=== PATIENT | female | born 1975 | race Caucasian/White ===

== ENCOUNTER → 2023-11-28 08:35 | Outpatient (REF) | payer OTHER, SELFPAY | LOC: HWRAD 08:35 | PROVIDERS: ATTENDING PHYSICIAN Psychiatry & Neurology Neurology; FAMILY PHYSICIAN Family Medicine | DX: G54.0 Brachial plexus disorders (principal) | CPT/HCPCS: 71046 ==

== ENCOUNTER → 2023-12-04 17:26 | Outpatient (REF) | payer OTHER, SELFPAY | LOC: PAVMRI 17:26 | PROVIDERS: ATTENDING PHYSICIAN Psychiatry & Neurology Neurology; FAMILY PHYSICIAN Family Medicine | DX: G54.0 Brachial plexus disorders (principal) | CPT/HCPCS: 73218 ==

== ENCOUNTER → 2024-04-29 06:27 | Day surgery (SDC) | payer OTHER, SELFPAY | LOC: GI 06:27 | PROVIDERS: ATTENDING PHYSICIAN Internal Medicine Gastroenterology | DX: Z12.11 Encounter for screening for malignant neoplasm of colon (principal); D12.0 Benign neoplasm of cecum; K63.5 Polyp of colon; Q43.8 Other specified congenital malformations of intestine; Z83.719 Family history of colon polyps, unspecified | CPT/HCPCS: 45385; 88305 ==

== ENCOUNTER 2025-02-06 13:34 | Emergency (ER) | payer OTHER, SELFPAY ==
[2025-02-06 13:50] VITALS: BP 125/73
--- NOTE | 2025-02-06 15:14 | ED.GENMED ---
History of Present Illness
General
Chief Complaint: Head Injury
Source: patient
Time Seen by Provider: 02/06/25 14:59
History of Present Illness
History of Present Illness:
Left this patient is a 49-year-old female presents emergency department status post low impact head injury on Monday. She was climbing down from a jungle gym, walking down the steps when she accidentally hit the back of her head against a
beam. She said it hurt initially and continues to feel 'pressure' in the right posterior occiput of her head. She also notes persistent nausea without vomiting feeling 'foggy', with right-sided neck discomfort, right-sided ear fullness/pain. She
denies double vision, change in speech, chest pain, dyspnea, numbness, tingling, focal weakness. She denies blurry vision or double vision but says her vision just seems a little funny like before when she needed her Chiari malformation
repaired/operated on.
Past History
Past History
ED Past Medical History: Other (Chiari malformation)
ED Past Surgical History: Appendectomy, Tonsilectomy and Other (Craniotomy, lumpectomy, )
Social History
Tobacco: Non-smoker
Alcohol: None
Drug: None
Personal:
Living: with family
Phy Exam
Physical Exam
Physical Exam:
GENERAL: Alert , in no apparent distress
EYE: pupils equal and reactive, EOMI, no nystagmus, no photophobia
NECK: Supple, no significant adenopathy, no midline tenderness.
ENT: o/p clr, mmm, TMs clear bilaterally, no signs of head or facial injury noted on exam, no [place], no raccoon.
CARDIAC: Regular rate and rhythm .
LUNGS: Clear breath sounds bilaterally, no acute respiratory distress, no wheezes/rales/rhonchi
ABDOMEN: Soft, without focal tenderness, no r/g, no cvat
NEUROLOGICAL: Alert and oriented, no focal neuro deficits, [id number] normal, cranial nerves II through XII intact, gait normal, motor 5 out of 5, sensory intact
SKIN: Warm and dry, skin intact.
MUSCULOSKELETAL: No edema, well perfused.
PSYCH: Normal and appropriate interaction.
Course
Orders/Labs/Results
Orders:
Orders
02/06/25 13:36
CT Head W/o Iv Contrast Urgent
Comment:
Reason For Exam: head injury with prior brain surgery
Vital Signs
Initial and Last Documented VS:
Initial Vital Signs
Temp Pulse Resp BP Pulse Ox
98.0 F 78 18 125/73 99
02/06/25 13:50 02/06/25 13:50 02/06/25 13:50 02/06/25 13:50 02/06/25 13:50
Last Documented Vital Signs
Temp Pulse Resp BP Pulse Ox
98.0 F 78 18 125/73 99
02/06/25 13:50 02/06/25 13:50 02/06/25 13:50 02/06/25 13:50 02/06/25 15:18
*Pulse Oximetry
SaO2: 99
Oxygen Mode of Delivery: Room air
Update Note
Update Note:
Patient presents to the Emergency Department with ___head injury with associated symptoms
Number and Complexity of Problems Addressed at the Encounter
� Chronic conditions affecting care:
� Acute Exacerbation and/or Progression of Chronic Illness:
� Differential Diagnosis includes: But not limited to concussion, subdural, epidural, skull fracture, etc. etc.
Amount and/or Complexity of Data to be Reviewed and Analyzed
� I performed an independent evaluation of and my interpretation is:
EKG:
CT:head ct nad
Xrays:
Laboratory Studies:
Other:
� Review of other/old records reveals:
� Clinical information was obtained by an independent historian:
� Prescriptions/Medications Considered but not given:
� Further testing considered but not performed:
Risk of Complications and/or Morbidity or Mortality of Patient Management
� Social determinants of health affecting care:
� Discussion with other providers (PCP, Hospitalists, Consultants, etc):
� Escalation of care including admission/observation vs risk of discharge considered: Neurological exam normal, low impact head injury. Symptoms very consistent with concussion. Discussed with patient and her who is
bedside concussion precautions. Awaiting formal head CT report before discharge.
ED Attending Note
-
Portions of this chart may have been created with voice recognition software.� Occasional wrong word or��sound alike� substitutions may have occurred due to the inherent limitations of voice recognition software.
Discharge Plan
Departure
Patient Disposition: Home (Routine Discharge)
Date of Disposition: 02/06/25
Time of Disposition: 16:30
Patient with high blood pressure during this ER visit?: Yes
Discharge Problem:
Concussion
Instructions: Concussion, Adult (DC), Head Injury in Adults (DC), BLOOD PRESSURE
Prescriptions:
No Action
B Lapel
1 tab PO DAILY@1200
Patient Comments:
contains b 1,2,3,6,12, folate and biotin
alpha lipoic acid 50 MG capsule
100 mg PO DAILY@1700
magnesium citrate 296 ML solution
600 mg PO HS
docosahexaenoic acid 100 MG capsule
200 mg PO DAILY
Butyric Acid 250mg
1 tab PO MEALS
D3 K2 125mcg/90mcg
1 tab PO DAILY@1200
Resvoxitrol
1 tab PO BID
Patient Comments:
contains turmeric 400mg and broccolli
Uva Ursi
1 tab PO DAILY@1000
Patient Comments:
contains bearberry 200mg
oxycodone-acetaminophen 5 MG/325 MG tablet
1 tab PO Q4HPRN PRN (Reason: moderate to severe pain) Qty: 10 0RF
Referrals:
Rita Jackson DO [Family Provider, Family Practice] - Follow up in 1 week
Activity Restrictions/Additional Instructions:
IF YOU DEVELOP INCREASING OR NEW PAIN, DOUBLE VISION, DIFFICULTY WALKING, VOMITING, CHANGE IN SPEECH, WEAKNESS, NUMBNESS, GET WORSE, DO NOT GET BETTER, OR OTHER WORRISOME SIGNS, PLEASE RETURN TO THE ER IMMEDIATELY!
Interventions
Interventions:
*Risk Screen - Suicide Last Done: 02/06/25 13:50
*Neglect/Abuse Screening Last Done: 02/06/25 13:50
*ED COVID-19 Vaccine History Last Done: 02/06/25 13:50
Discharge Date and Time
Print Language: [place]
== END 2025-02-06 17:02 | disposition home or self-care (01) ==
LOC: EMR 13:34
PROVIDERS: EMERGENCY PHYSICIAN Emergency Medicine; FAMILY PHYSICIAN Family Medicine
DX: S06.0XAA Concussion with loss of consciousness status unknown, initial encounter (principal); X58.XXXA Exposure to other specified factors, initial encounter; Z90.49 Acquired absence of other specified parts of digestive tract
CPT/HCPCS: 99284; 70450

== ENCOUNTER → 2025-05-19 08:11 | Outpatient (REF) | payer OTHER, SELFPAY | LOC: HWRAD 08:11 | PROVIDERS: ATTENDING PHYSICIAN Nurse Practitioner Adult Health; FAMILY PHYSICIAN Family Medicine | DX: N83.209 Unspecified ovarian cyst, unspecified side (principal) | CPT/HCPCS: 76830; 76856 ==

== ENCOUNTER → 2025-05-21 09:28 | Outpatient (REF) | payer OTHER, SELFPAY | LOC: WDC 09:28 | PROVIDERS: ATTENDING PHYSICIAN Nurse Practitioner Adult Health; FAMILY PHYSICIAN Family Medicine | DX: N63.0 Unspecified lump in unspecified breast (principal); N64.52 Nipple discharge | CPT/HCPCS: 76642; 77062; 77066 ==

== ENCOUNTER → 2025-06-13 16:40 | Outpatient (REF) | payer OTHER, SELFPAY | LOC: MRI 3T 16:40 | PROVIDERS: ATTENDING PHYSICIAN Surgery; FAMILY PHYSICIAN Family Medicine | DX: N64.52 Nipple discharge (principal) | CPT/HCPCS: 77049; A9585 ==

== ENCOUNTER 2025-07-22 06:05 | Day surgery (SDC) | payer OTHER, SELFPAY ==
[2025-07-07 09:08] LABS: Hematocrit 36.0 % (37.0-47.0); Hemoglobin 12.2 g/dL (12.0-16.0); Mean Corp Hgb Conc. 33.9 g/dL (33.0-37.0); Mean Corpuscular Volume 82.9 fL (81.0-99.0); Platelet Count 309 10^3/uL (130-400); Red Cell Dist. Width 13.6 % (11.5-14.5)
[2025-07-07 09:48] LABS: ALT (SGPT) 27 U/L (0-35); AST (SGOT) 28 U/L (14-36); Albumin 4.2 g/dl (3.5-5.0); Alkaline Phosphatase 42 U/L (38-126); Blood Urea Nitrogen 15 mg/dl (7-17); Calcium 9.2 mg/dl (8.4-10.2); Carbon Dioxide 27 mmol/L (22-30); Chloride 101 mmol/L (98-107); Glucose 90 mg/dl (70-99); Potassium 4.5 mmol/L (3.5-5.1); Sodium 133 mmol/L (135-145); Total Protein 7.2 g/dl (6.3-8.2); eGFR > 60.00
[2025-07-07 09:53] LABS: Prealbumin (Transthyretin) 19.5 mg/dl (17.6-36.0)
[2025-07-07 10:08] LABS: Vitamin D, 25-OH*** 38.4 ng/mL (30-80)
[2025-07-07 12:51] VITALS: BMI 23.9
[2025-07-22 06:22] VITALS: BMI 23.9
[2025-07-22 06:23] VITALS: BP 98/76
[2025-07-22] MEDS: NORMOSOL-R/PLASMALYTE-A 1000 IV (06:33)
[2025-07-22] MEDS: TYLENOL 1000 MG PO (06:36)
[2025-07-22 08:39] VITALS: BP 103/40
[2025-07-22 08:45] VITALS: BP 96/46
--- NOTE | 2025-07-22 08:49 | W.IMMPOSTOP ---
Surgical Immed Post Op Note
-
Primary Surgeon: Gerry
Assisting Surgeon: None
Pre-op Diagnosis: pathologic discharge right breast
Post-op Diagnosis: same
Procedure Performed: Exploration right nipple areolar complex and excision central duct
Anesthesia Type: TIVA
Specimen / Cultures: Right central duct complex
Estimated Blood Loss: 4cc
Complications: none
Operative Findings: none
--- NOTE | 2025-07-22 08:50 | OR.RPT ---
Operative Report
Operative Report
Date of procedure: 07/22/25
Surgeon: Gerry
Preoperative diagnosis: Pathologic discharge right breast
Postoperative diagnosis: Same
Procedure: Exploration right nipple areolar complex and excision central duct
The patient is a 49-year-old female who presented with spontaneous pathologic right breast discharge. All workup including a breast MRI was negative but she presents for exploration. On the day of the procedure she presented to the same-day
surgical services unit where she was prepped. She verified site and procedure. DVT and antibiotic prophylaxis were provided. The patient was transferred to the operating room and in the supine position intravenous sedation was delivered. An
appropriate timeout procedure was performed by all staff members.
Right breast was prepped and draped in usual sterile fashion all tissues were anesthetized with 1% lidocaine plain and an inferior circumareolar incision was made sharply. The nipple flap was elevated with the cautery and the involved duct was
located and transected. Clear discharge was emanating from this duct. An excision of the central duct complex and surrounding tissue was made using the cautery. Time out of body was noted and the specimen was oriented for the pathologist and sent
for permanent analysis. Hemostasis was maintained with the cautery. Tissues were infiltrated with 0.5% Marcaine plain. The wound was closed using simple interrupted 3-0 Polysorb on deep intermediate and subcutaneous tissue and skin was closed
with a running subcuticular 4 Monocryl. Surgical glue and a sterile compressive dressing was applied. All sponge needle and instrument counts were correct and the patient was transferred to the same-day surgical services unit for recovery
(,)
[2025-07-22 09:00] VITALS: BP 106/58
[2025-07-22 09:15] VITALS: BP 106/54
[2025-07-22 09:30] VITALS: BP 110/55
== END 2025-07-22 09:50 | disposition home or self-care (01) ==
LOC: SDS 06:05
PROVIDERS: ATTENDING PHYSICIAN Surgery; FAMILY PHYSICIAN Family Medicine
DX: N64.52 Nipple discharge (principal)
CPT/HCPCS: 19110; 80053; 82306; 84134; 85027; 88307; 88341; 88342; 88360